=== PATIENT | male | born 1990 | race Caucasian/White ===

== ENCOUNTER 2017-03-31 15:48 | Emergency (ER) | payer BC ==
--- NOTE | 2017-03-31 17:33 | RADIOLOGY REPORT (SQ) ---
EXAM DESCRIPTION: TIBIA FIBULA LEFT COMPLETED DATE/TIME: 03/31/2017 5:24 pm REASON FOR STUDY: pretibial pain COMPARISON: None. NUMBER OF VIEWS: Two views. TECHNIQUE: Two radiographic images acquired of the left tibia and fibula to include the knee and ank le in at least one projection. LIMITATIONS: None. FINDINGS: MINERALIZATION: Normal. BONES: No acute fracture or dislocation. There is a bony protuberance at the level of the proximal t ibia the appearance would suggest an osteo chondroma or other benign process however clinical correla tion is recommended SOFT TISSUES: No obvious swelling or foreign body. OTHER: No other significant finding. IMPRESSION: No acute fracture or dislocation. Bony protuberance at the level of the proximal tibia is noted above the appearance of which would suggest an osteo chondroma or other benign process howev er clinical correlation is recommended. Other findings as noted above TECHNICAL DOCUMENTATION: JOB ID: [id number] [employer]- All Rights Reserved
--- NOTE | 2017-03-31 18:05 | ER Document Report ---
HPI - HPI Pain Level: 4 Context: 26 yo male c/o burning, throbbing pain to left vargas x 1 week. no trauma. admits to prolonged standing on concrete floors. has worked last 12 days straight. Associated Symptoms: None Exacerbated by: Walking Relieved by: Sitting Similar symptoms previously: No Recently seen / treated by doctor: No - MUSCULOSKELETAL Musculoskeletal: REPORTS: Extremity pain Past Medical History - General Information source: Patient - Social History Smoking Status: Current Every Day Smoker Chew tobacco use (# tins/day): No Frequency of alcohol use: Occasional Drug Abuse: Marijuana Lives with: Family Family History: None Patient has suicidal ideation: No Patient has homicidal ideation: No Renal/ Medical History: Denies: Hx Peritoneal Dialysis Psychiatric Medical History: Reports: Hx Attention Deficit Hyperactivity Disorder, Hx Depression - PTSD Past Surgical History: Reports: Hx Orthopedic Surgery - L hip L knee R knee - Immunizations Hx Diphtheria, Pertussis, Tetanus Vaccination: Yes - 2008 [employer] Provider Document - INFECTION CONTROL TRAVEL OUTSIDE OF THE [place] IN LAST 30 DAYS: No - HEENT HEENT: Atraumatic - NECK Neck: Normal Inspection, Supple - RESPIRATORY Respiratory: Breath Sounds Normal, No Respiratory Distress O2 Sat by Pulse Oximetry: 97 - MUSCULOSKELETAL/EXTREMETIES Musculoskeletal/Extremeties: Tender - focal tenderness left mid pretibial area. no edema, no echymosis. distal SMC intact Course - Re-evaluation Re-evalutation: 03/31/17 18:01 xray is negative. results reviewed with pt. - Vital Signs Vital signs: Temp Pulse Resp BP Pulse Ox 99.1 F 106 H 18 147/87 H 97 03/31/17 16:01 03/31/17 16:01 03/31/17 16:01 03/31/17 16:01 03/31/17 16:01 Discharge - Discharge Clinical Impression: Left leg pain Condition: Stable Disposition: HOME, SELF-CARE Additional Instructions: your xray is negative today yahaira wrap for comfort and support Motrin for discomfort ice and elevate follow up with primary care if symptoms persist Forms: Return to Work
[2017-03-31 18:22] VITALS: BP 143/88
== END 2017-03-31 18:31 | disposition home or self-care (01) ==
LOC: ER 15:48
DX: M79.605 Pain in left leg (principal); F17.200 Nicotine dependence, unspecified, uncomplicated
CPT/HCPCS: 99283

== ENCOUNTER 2017-12-22 23:02 | Emergency (ER) | payer BC ==
[2017-12-22] MEDS ORDERED: HYDROCODONE/ACETAMINOPHEN 5-325 MG TABLET PO ONE (23:31)
--- NOTE | 2017-12-22 23:34 | ER Document Report ---
ED General - General Chief Complaint: Knee Injury Stated Complaint: KNEE INJURY Time Seen by Provider: 12/22/17 23:24 Notes: Patient is a 27-year-old male who presents with complaint of pain in his left knee. He says he feels as if his knee is constantly going out of alignment. He is unsure if it is actually dislocating or not. He denies any weakness or numbness into his foot. He says this has been intermittent for 3-4 days. He says he cannot tell if it is his kneecap that is dislocating or if his knee is actually dislocating or just "out of alignment". He is never seen an orthopedist about this. He is still able to bear weight but is painful to do so. TRAVEL OUTSIDE OF THE [place] IN LAST 30 DAYS: No - Related Data Allergies/Adverse Reactions: No Known Allergies Allergy (Verified 03/31/17 15:51) Past Medical History - Social History Smoking Status: Unknown if Ever Smoked Frequency of alcohol use: None Drug Abuse: None Family History: None Renal/ Medical History: Denies: Hx Peritoneal Dialysis Psychiatric Medical History: Reports: Hx Attention Deficit Hyperactivity Disorder, Hx Depression - PTSD Past Surgical History: Reports: Hx Orthopedic Surgery - L hip L knee R knee - Immunizations Hx Diphtheria, Pertussis, Tetanus Vaccination: Yes - 2008 Review of Systems - Review of Systems Notes: My Normal Review Basic REVIEW OF SYSTEMS: CONSTITUTIONAL : Denies fever, chills, or sweats. Denies recent illness. SKIN: Denies rash or skin lesions. NEUROLOGICAL: Denies sensory or motor loss. ALL OTHER SYSTEMS REVIEWED AND NEGATIVE. Physical Exam - Vital signs Vitals: Temp Pulse Resp BP Pulse Ox 98.3 F 96 16 130/74 H 98 12/22/17 23:10 12/22/17 23:10 12/22/17 23:10 12/22/17 23:10 12/22/17 23:10 - Notes Notes: General Appearance: Well nourished, alert, cooperative, no acute distress, moderate obvious discomfort. Vitals: reviewed, See vital signs table. Eyes: PERRL, EOMI, Conjuctiva Extremity: On initial exam patient's left leg is rotated outward. The patella appears to be midline. Does actually flex the knee some extend it normally on his own when he is trying to get in the bed. When I walk in the room he is standing and bearing weight on it. Distal posterior tibial and dorsalis pedis pulses are intact. Cap refill is intact. Is able move his left foot without difficulty. Distal sensation intact. Skin: warm, dry, appropriate color, no rash Neuro: speech clear, oriented x 3, normal affect, responds appropriately to questions. Course - Re-evaluation Re-evalutation: 12/24/17 07:52 CT was obtained because it is really difficult to tell per the patient's history whether or not he has had a knee dislocation. CTA was negative. Upon recurrent discussions with the patient he now says that his left leg has been externally rotated like this for several years. His pain is just been getting a lot worse when he feels at times that may be it is out of place however it is really difficult for him to tell this for sure. Currently the knee is in place. There is no evidence of any vascular injury. I will place him in a knee immobilizer and having him use crutches. I will have him follow-up closely with the orthopedic surgeon. Patient encouraged to return to ER if he has worsening pain, weakness or numbness into the foot, or if he feels unwell. Patient agrees with plan will be discharged home. Dictation of this chart was performed using voice recognition software; therefore, there may be some unintended grammatical errors. - Vital Signs Vital signs: Temp Pulse Resp BP Pulse Ox 98.6 F 89 18 128/70 H 97 12/23/17 02:03 12/23/17 02:03 12/23/17 02:03 12/23/17 02:03 12/23/17 02:03 Discharge - Discharge Clinical Impression: Knee pain Qualifiers: Chronicity: chronic Laterality: left Qualified Code(s): M25.562 - Pain in left knee Condition: Good Disposition: HOME, SELF-CARE Additional Instructions: Please do not bear weight on your left knee until cleared by Dr. Bee. Please call his office this am to make a close follow up appointment this week. Please wear the knee immobilizer. You can take it off to shower. Please return to the ER immediately if you have worsening pain or feel unwell. Please be aware that [facility] does have Tylenol (acetaminophen) in it. Please make sure you do not take more than 4000 mg of acetaminophen a day. Do not drive or care for children after you have taken this medication they will make you sleepy and sometimes impair judgment. Prescriptions: Hydrocodone/Acetaminophen [[place] 5-325 mg Tablet] 1 tab PO Q4 PRN #10 tablet PRN Reason: For Breakthrough Pain Forms: Special Work Note, Return to Work Referrals: GEMINI BEE MD [ACTIVE STAFF] - Follow up tomorrow
[2017-12-23] MEDS ORDERED: NORMAL SALINE 1000 ML 1,000 ML IV ONE (00:04)
--- NOTE | 2017-12-23 00:12 | RADIOLOGY REPORT (SQ) ---
EXAM DESCRIPTION: XR KNEE 4 OR MORE VIEWS COMPLETED DATE/TME: 12/22/2017 00:00 CLINICAL HISTORY: 27 years, Male, Knee "popped out" Pain L knee Onset 2 hrs COMPARISON: None. NUMBER OF VIEWS: 4 TECHNIQUE: 4 views left knee LIMITATIONS: None. FINDINGS: Negative for acute fracture or dislocation. Bony protuberance contiguous with the medial cortex of the proximal tibia, also described on prior plain film dated 03/31/2017. This likely reflects osteochondroma. Soft tissues are unremarkable.. IMPRESSION: No acute osseous abnormality. Probable osteochondroma of the proximal tibia 2010 [employer]- All Rights Reserved
--- NOTE | 2017-12-23 01:08 | RADIOLOGY REPORT (SQ) ---
EXAM DESCRIPTION: CT LOWER EXTREMITY ANGIOGRAPHY WITH IV CONTRAST COMPLETED DATE/TME: 12/23/2017 00:03 CLINICAL HISTORY: 27 years, Male, possible knee dislocation earlier COMPARISON: None. TECHNIQUE: 337 Images stored on PACS. All CT scanners at this facility use dose modulation, iterative reconstruction, and/or weight based dosing when appropriate to reduce radiation dose to as low as reasonably achievable (ALARA). [facility]: Dose Right [facility]: CareDose [facility]: Dose Right [facility]: Teradose 4D [facility]: [employer] LIMITATIONS: None. FINDINGS: The popliteal artery is widely patent. The proximal portions of the trifurcation vessels are widely patent. Imaging was not continued below the proximal tibial diaphysis. No CTA evidence for vascular injury or extravasation of contrast. As described on plain film, there is a probable osteochondroma of the proximal medial tibial diaphysis, incompletely imaged on this exam. The myofascial planes are preserved. IMPRESSION: No CTA evidence for vascular injury or contrast extravasation. Proximal tibial osteochondroma. TECHNICAL DOCUMENTATION: Quality ID # [id number]: Final reports with documentation of one or more dose reduction techniques (e.g., Automated exposure control, adjustment of the mA and/or kV according to patient size, use of iterative reconstruction technique) 2010 [employer]- All Rights Reserved
[2017-12-23] MEDS ORDERED: HYDROCODONE/ACETAMINOPHEN 5-325 MG (6 TAB/ER DISP) PO PRN (01:27)
[2017-12-23 02:04] VITALS: BP 128/70
== END 2017-12-23 02:04 | disposition home or self-care (01) ==
LOC: ER 23:02
DX: M25.562 Pain in left knee (principal); G89.29 Other chronic pain; Z98.890 Other specified postprocedural states
CPT/HCPCS: 99283; 96360; 73564; 73706; L1830; J7030

== ENCOUNTER 2018-03-24 09:43 | Day surgery (SDC) | payer BC ==
[2018-03-16 09:30] LABS: HEMATOCRIT 47.4 % (37.9-51.0); HEMOGLOBIN 16.7 g/dL (13.5-17.0); MEAN CORPUSCULAR HEMOGLOBIN 28.1 pg (27.0-33.4); MEAN CORPUSCULAR HGB CONC 35.2 g/dL (32.0-36.0); MEAN CORPUSCULAR VOLUME 80 fl (80-97); PLATELET COUNT 268 10^3/uL (150-450); RED BLOOD COUNT 5.94 10^6/uL (4.35-5.55); RED CELL DISTRIBUTION WIDTH 13.4 % (11.5-14.0); WHITE BLOOD COUNT 8.5 10^3/uL (4.0-10.5)
[2018-03-16 09:33] LABS: APPEARANCE,URINE SLIGHTLY-CLOUDY; BILIRUBIN,URINE NEGATIVE (NEGATIVE); COLOR,URINE YELLOW; GLUCOSE, URINE NEGATIVE (NEGATIVE); KETONES,URINE NEGATIVE (NEGATIVE); LEUKOCYTE ESTERASE,URINE NEGATIVE (NEGATIVE); NITRITE,URINE NEGATIVE (NEGATIVE); PROTEIN,URINE 100 mg/dL (NEGATIVE); URINE SPECIFIC GRAVITY 1.021; UROBILINOGEN,URINE NEGATIVE mg/dL (<2.0)
[2018-03-16 09:57] LABS: ANION GAP 7 (5-19); BLOOD UREA NITROGEN 13 mg/dL (7-20); CALCIUM 9.5 mg/dL (8.4-10.2); CARBON DIOXIDE 28 mmol/L (22-30); CHLORIDE 103 mmol/L (98-107); GLUCOSE 111 mg/dL (75-110); POTASSIUM 4.7 mmol/L (3.6-5.0); SODIUM 137.8 mmol/L (137-145)
--- NOTE | 2018-03-16 10:27 | RADIOLOGY REPORT (SQ) ---
EXAM DESCRIPTION: CHEST PA/LATERAL COMPLETED DATE/TIME: 03/16/2018 9:28 am REASON FOR STUDY: PRE-OP COMPARISON: 11/19/2008, 11/18/2008 EXAM PARAMETERS: NUMBER OF VIEWS: two views TECHNIQUE: Digital Frontal and Lateral radiographic views of the chest acquired. RADIATION DOSE: NA LIMITATIONS: none FINDINGS: LUNGS AND PLEURA: No opacities, masses or pneumothorax. No pleural effusion. MEDIASTINUM AND HILAR STRUCTURES: No masses or contour abnormalities. HEART AND VASCULAR STRUCTURES: Heart normal size. No evidence for failure. BONES: No acute findings. HARDWARE: None in the chest. OTHER: No other significant finding. IMPRESSION: NO SIGNIFICANT RADIOGRAPHIC FINDING IN THE CHEST. TECHNICAL DOCUMENTATION: JOB ID: [id number] [employer]- All Rights Reserved Reading location - IP/workstation name: [email or web address]
--- NOTE | 2018-03-17 08:01 | EKG REPORT ---
SEVERITY:- NORMAL ECG - SINUS RHYTHM : Confirmed by: Theresa Guajardo MD 17-Mar-2018 07:59:58
[~2018-03-24 09:43] MED LIST: CEFAZOLIN 2 GM/D5W RTU 2 GM/50 ML RTUPB IV PRN; LACTATED RINGERS 1000 ML IV PRN; LIDOCAINE 0.5% INJ-PF (5 MG/ML) 50 ML SDV SUBCUT PRN; SUCCINYLCHOLINE CHLORIDE INJ 200 MG/10 ML VIAL ONE
[2018-03-24] MEDS ORDERED: CEFAZOLIN 2 GM/D5W RTU 2 GM/50 ML RTUPB IV ONE (10:05)
[2018-03-24] MEDS ORDERED: EPINEPHRINE INJ/PF 1 MG/1 ML AMPULE ONE (10:39)
[2018-03-24] MEDS ORDERED: BUPIVACAINE HCL 0.5 % INJ/PF 30 ML SDV ONE (10:39)
[2018-03-24] MEDS ORDERED: PROPOFOL INJ 200 MG/20 ML VIAL IV ONE ×2 (14:41→14:44)
[2018-03-24] MEDS ORDERED: LIDOCAINE 2% INJ-PF (20 MG/ML) 10 ML AMPUL ONE (14:41)
[2018-03-24] MEDS ORDERED: FENTANYL CITRATE INJ/PF 100 MCG/2 ML AMPUL ONE (14:42)
[2018-03-24] MEDS ORDERED: PROMETHAZINE HCL INJ 25 MG/1 ML VIAL ONE (14:42)
[2018-03-24] MEDS ORDERED: ONDANSETRON HCL INJ/PF 4 MG/2 ML SDV ONE (14:43)
[2018-03-24] MEDS ORDERED: MIDAZOLAM 2 MG/2 ML INJ ONE (14:43)
[2018-03-24] MEDS ORDERED: DEXAMETHASONE SOD PHOSPHATE INJ 4 MG/1 ML VIAL ONE (14:43)
[2018-03-24] MEDS ORDERED: ACETAMINOPHEN 1,000 MG/100 ML RTUPB IV ONE (14:43)
[2018-03-24] MEDS ORDERED: MEPERIDINE HCL/PF INJ 25 MG/1 ML DISP.SYRIN IV PRN (15:30)
[2018-03-24] MEDS ORDERED: OXYCODONE-ACETAMINOPHEN 5-325 MG TABLET PO PRN ×4 (15:30→17:06)
[2018-03-24] MEDS ORDERED: FENTANYL CITRATE INJ/PF 100 MCG/2 ML AMPUL IV PRN ×3 (15:30)
[2018-03-24] MEDS ORDERED: ONDANSETRON HCL INJ/PF 4 MG/2 ML SDV IV PRN (15:30)
[2018-03-24] MEDS ORDERED: DIPHENHYDRAMINE HCL 50 MG/ML VIAL IV PRN (15:30)
[2018-03-24] MEDS ORDERED: PROMETHAZINE HCL INJ 25 MG/1 ML VIAL IV PRN ×2 (15:30)
--- NOTE | 2018-03-24 17:03 | Operative Report ---
Operative Report DATE OF SURGERY: 03/24/18 PREOPERATIVE DIAGNOSIS: Left knee ACL tear and medial meniscus bucket-handle te ar POSTOPERATIVE DIAGNOSIS: Same OPERATION: Left knee arthroscopic ACL reconstruction with Achilles allograft and partial medial meniscectomy SURGEON: DMITRIY VILLALPANDO ANESTHESIA: GA TISSUE REMOVED OR ALTERED: Meniscal shavings COMPLICATIONS: None ESTIMATED BLOOD LOSS: 20 mL INTRAOPERATIVE FINDINGS: As above PROCEDURE: Patient was brought to the operating room and successfully induced and intubated in a the supine position. Once the tube was secured a thigh tourniquet was applied to the left lower extremity was prepped and draped in a normal surgical fashion. Timeout was done identifying the left knee has a correct site. The extremity was exsanguinated with an Esmarch and then the tourniquet was inflated at 300 mmHg 0.25% of Marcaine was injected into the anticipated portal sites. 11 blade was used to establish the anterolateral portal. Scope was introduced and the capsule was distended with sterile saline solution. Under direct visualization the anteromedial portal sites was established first by applying a spinal needle and then established with the 11 blade. Probe was introduced and a diagnostic scope was done. Patient had a bucket-handle tear of the medial meniscus and grade 1 changes of the medial femoral condyle. Patient also had full tear of the ACL that had scarred down to the PCL but had a empty wall sign. I used a meniscal biter and a 4.0 mm shaver to cut the 2 ends of the meniscus tear and was able to remove the large portion with a hemostat. The remaining edges of the torn meniscus were then cleaned off of the meniscal biter and shaver. After the contours of the edges were completed and 90% of the medial meniscus was resected pictures were taken showing the rim remnant. At this point I turned my attention to the ACL I used the combination of 5.5 mm shaver and 50 radiofrequency ablator to do my debridement of the torn anterior cruciate ligament and expose the lateral wall. I used a chondral pick to coreen where I would like to place my femoral tunnel. This was confirmed with the medial [id number] guide. I flexed the knee as much as possible and use my spade tip guidepin and drilled through. I was able to measure about a 30 mm tunnel before I pierced the cortex and passed the pin through the lateral aspect of the thigh. I used the 10 mm low-profile reamer then to do my femoral tunnel and stopped at 25 mm in depth. I used a shaver then to clean out the bony debris. I visualized the tunnel with a camera and make sure had a back wall and did not pierced the lateral cortex. At this point I fed a FiberWire through the eyelet and passed it through the lateral aspect of the thigh. This FiberWire were then later on the shuttle through the tibial tunnel to shuttle the graft. In the meantime it was clamped outside the skin. At this point I grabbed my retro- cutter guide which was marked at [address] on the anterior cruciate ligament footprint on the tibial side. This had been cleaned off with a shaver and bur to Fregosi ablator as well. I used the scope anterior horn of the lateral meniscus as a guide as well as 7 mm anterior to the PCL. Once I was happy with the placement I did a medial incision and measured the tibial tunnel to be 40. Once again I use the shaver to clean out the debris in the knee. The Achilles was preparing the back table and the made sure that I was able to pass through it 10 mm tunnel with the bone plug side and the tendinous portion. The graft had been placed in a moist sponge and ready for insertion once the tunnels were completed. I used a probe to grabbed the have the portion of the FiberWire suture that was left in the femoral tunnel and passed it through the tibial tunnel. At this point we shuttled the Achilles tendon allograft through the tibial tunnel into the femoral tunnel successfully using the bone plug to fit nicely in the femoral tunnel. I proceeded to notch the tunnel and placed a nitinol wire. I placed a 7 x 23mm bicomposite screw securing the bone plug in the femoral tunnel. I then turned my attention to the tibial tunnel where I notched it and then placed a nitinol wire for placement of the screw. While holding the leg in a reverse Ivone position by my assistant loan processor I pulled tension on the tibial side of the graft and placed my interference screw securing the graft. Ivone was used to showing good endpoint and minimal translation. Scope was introduced and I used a probe to check the tension on the anterior cruciate ligament graft. I was satisfied with the tension so at this point fluid was removed from the knee and the instruments were removed. I proceeded to close my 2 portal sites with 3-0 nylon and the tibial incision with 0 Vicryl to Vicryl and 2-0 nylon. Xeroform, 4 x 4, AVD pad, Sof-Rol was applied and then overwrapped with an Gil bandage. Tourniquet was let down and the drapes were removed. Patient was extubated and sent to PACU in stable condition.
--- NOTE | 2018-03-24 17:05 | Discharge Summary ---
Discharge Summary (SDC) - Discharge Final Diagnosis: Left knee ACL reconstruction with Achilles allograft and partial medial meniscectomy Date of Surgery: 03/24/18 Discharge Date: 03/24/18 Condition: Good Treatment or Instructions: My patient instructed to follow up in 10-14 days. Patient instructed to keep dressing dry clean and intact for 4 days and then allowed to remove. At that point patient can shower and apply Band-Aids as needed. Patient can weight-bear as tolerated and do range of motion exercises as tolerated. Crutches for support and safety. Can wean crutches once stable on his feet. Patient instructed to call the office if patient develops fevers chills redness and drainage from the surgical sites. Prescriptions: Oxycodone HCl/Acetaminophen [Percocet 5-325 mg Tablet] 1 - 2 tab PO ASDIR PRN #30 tablet PRN Reason: Referrals: AMARILIS ISLAS FNP-C [Primary Care Provider] - Discharge Diet: As Tolerated Respiratory Treatments at Home: Deep Breathing/Coughing Discharge Activity: No Driving, No Lifting/Push/Pulling, Slowly Increase Activity, Walk Frequently Home Care Assistance: None Needed Adaptive Devices on Discharge: Axillary Crutches Report the Following to Your Physician Immediately: Shortness of Breath, Vomiting, Increase in Pain, Fever over 101 Degrees, Unusual Bleeding, Redness, Drainage-Yellow, Drainage-[place], Drainage-Green, Drainage-Foul Smelling
[2018-03-24] MEDS ORDERED: HYDROMORPHONE HCL INJ/PF 2 MG/ML AMPULE ONE (17:08)
[2018-03-24] MEDS: FENTANYL CITRATE INJ/PF 100 MCG/2 ML AMPUL ONE ×2 (17:20→17:25)
[2018-03-24] MEDS ORDERED: KETOROLAC TROMETHAMINE INJ/PF 30 MG/1 ML SDV ONE (17:43)
[2018-03-24 20:33] VITALS: BP 132/95
== END 2018-03-24 20:05 | disposition home or self-care (01) ==
LOC: OROUT 09:43
PROVIDERS: ATTEND Orthopaedic Surgery
DX: M23.332 Other meniscus derangements, other medial meniscus, left knee (principal); S83.512A Sprain of anterior cruciate ligament of left knee, initial encounter; X58.XXXA Exposure to other specified factors, initial encounter; F17.210 Nicotine dependence, cigarettes, uncomplicated; I10 Essential (primary) hypertension; Z79.1 Long term (current) use of non-steroidal anti-inflammatories (NSAID); Z01.818 Encounter for other preprocedural examination
CPT/HCPCS: 93005; 36415; 85027; 80048; 81001; 71046; 93010; 29881; 29888; C1713 ×2; J2250; J3490 ×2; J1100; J0171; J3010; J1885; J1170; J2550; J0330; J2405; J2704; J0690; J0131; 1400

== ENCOUNTER 2018-11-03 11:14 | Emergency (ER) | payer SELFPAY ==
[2018-11-03 11:19] VITALS: BP 136/84
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
== END 2018-11-03 11:59 | disposition home or self-care (01) ==
LOC: ER 11:14
DX: J34.89 Other specified disorders of nose and nasal sinuses (principal)
CPT/HCPCS: 99283

== ENCOUNTER 2019-05-08 12:26 | Emergency (ER) | payer SELFPAY ==
[2019-05-08 13:55] VITALS: BP 149/88
[2019-05-08] MEDS ORDERED: LIDOCAINE 1% INJ-PF (10 MG/ML) 30 ML SDV INJ ONE (13:58)
[2019-05-08] MEDS ORDERED: IBUPROFEN 800 MG TABLET PO ONE (13:58)
--- NOTE | 2019-05-08 14:27 | RADIOLOGY REPORT (SQ) ---
EXAM DESCRIPTION: FINGER LEFT COMPLETED DATE/TIME: 05/08/2019 2:15 pm REASON FOR STUDY: 4th digit laceration COMPARISON: None. NUMBER OF VIEWS: Three views. TECHNIQUE: AP, lateral, and oblique images acquired of the left fourth finger. LIMITATIONS: None. FINDINGS: MINERALIZATION: Normal. BONES: No acute fracture or dislocation. No worrisome bone lesions. SOFT TISSUES: Soft tissue defect. OTHER: No other significant finding. IMPRESSION: Soft tissue defect. No underlying fracture. TECHNICAL DOCUMENTATION: JOB ID: [id number] [employer]- All Rights Reserved Reading location - IP/workstation name: [email or web address]
--- NOTE | 2019-05-08 15:22 | ER Document Report ---
HPI - HPI Time Seen by Provider: 05/08/19 13:55 Pain Level: 4 Notes: Patient is a 28-year-old male presenting to the emergency department chief complaint of left fourth digit laceration. Patient reports he was using a hedge tremor that was electric when it jumped and caught his finger. He is unsure when his last tetanus was. There is no active bleeding noted at this time. - CONSTITUTIONAL Constitutional: DENIES: Fever, Chills Past Medical History - General Information source: Patient - Social History Smoking Status: Current Every Day Smoker Frequency of alcohol use: Occasional Drug Abuse: Marijuana Family History: None Patient has suicidal ideation: No Patient has homicidal ideation: No - Past Medical History Cardiac Medical History: Denies: Hx Coronary Artery Disease, Hx Heart Attack, Hx Hypertension Pulmonary Medical History: Denies: Hx Asthma, Hx Bronchitis, Hx COPD, Hx Pneumonia Neurological Medical History: Denies: Hx Cerebrovascular Accident, Hx Seizures Renal/ Medical History: Denies: Hx Peritoneal Dialysis Musculoskeletal Medical History: Reports Hx Arthritis - MILD Psychiatric Medical History: Reports: Hx Attention Deficit Hyperactivity Disorder, Hx Depression - PTSD Past Surgical History: Reports: Hx Orthopedic Surgery - L hip L knee R knee - Immunizations Hx Diphtheria, Pertussis, Tetanus Vaccination: Yes - 2008 Vertical Provider Document - CONSTITUTIONAL Agree With Documented VS: - By Tabitha Notes: PHYSICAL EXAMINATION: GENERAL: Well-appearing, well-nourished and in no acute distress. HEAD: Atraumatic, normocephalic. EYES: Pupils equal round extraocular movements intact, conjunctiva are normal. ENT: Nares patent NECK: Normal range of motion LUNGS: No respiratory distress Musculoskeletal: Normal range of motion NEUROLOGICAL: Normal speech, normal gait. PSYCH: Normal mood, normal affect. SKIN: 1 cm laceration noted to left fourth digit through the nailbed. No active bleeding noted. - INFECTION CONTROL TRAVEL OUTSIDE OF THE [place] IN LAST 30 DAYS: No Course - Re-evaluation Re-evalutation: Tdap updated, laceration sutured under sterile technique, patient tolerated well. - Vital Signs Vital signs: Temp Pulse Resp BP Pulse Ox 97.7 F 101 H 16 149/88 H 98 05/08/19 13:53 05/08/19 13:53 05/08/19 13:53 05/08/19 13:53 05/08/19 13:53 Procedures - Laceration/Wound Repair Left fourth digit Wound length (cm): 2 Wound's Depth, Shape: Superficial Laceration pre-procedure: Sterile PPE donned Anesthetic type: 1% Lidocaine Wound Repaired With: Sutures Suture Size/Type: 5:0 Number of Sutures: 3 Discharge - Discharge Clinical Impression: Laceration Condition: Stable Disposition: HOME, SELF-CARE Additional Instructions: Laceration Care Your laceration has been sutured to keep the skin edges aligned during healing. The time of suture removal depends on the nature and location of your cut. Please follow the care instructions the doctor has outlined for you and return for further care, according to the schedule you've been given. Keep the wound and dressing clean. Unless you were told otherwise, you may shower daily, blotting the wound dry with a clean, unused towel. At other times, If the dressing gets wet or blood soaked, remove it and blot the wound dry, then reapply a new dressing. Unless you were instructed otherwise, dressings should be changed at least daily. If any signs of infection occur (swelling, redness, increasing tenderness, red streaks, tender lumps in the armpit or groin above the laceration, or fever), see the doctor immediately. Please return to the emergency department or your primary care provider in 10-12 days for suture removal. Please return earlier if you develop any signs of infection such as increased redness, swelling, foul-smelling drainage or fever. Prescriptions: Cephalexin [Keflex] 500 mg PO BID #10 capsule Forms: Return to Work Referrals: AMARILIS ISLAS FNP-C [Primary Care Provider] - Follow up as needed
== END 2019-05-08 15:44 | disposition home or self-care (01) ==
LOC: ER 12:26
DX: S61.215A Laceration without foreign body of left ring finger without damage to nail, initial encounter (principal); W29.3XXA Contact with powered garden and outdoor hand tools and machinery, initial encounter; Y93.H9 Activity, other involving exterior property and land maintenance, building and construction; F17.200 Nicotine dependence, unspecified, uncomplicated; F12.10 Cannabis abuse, uncomplicated
CPT/HCPCS: 99282; 73140; 12001; J3490

== ENCOUNTER 2019-05-18 20:36 | Emergency (ER) | payer SELFPAY ==
--- NOTE | 2019-05-18 20:49 | ER Document Report ---
ED General - General Chief Complaint: Suture Removal Stated Complaint: REMOVAL OF SUTURES Primary Care Provider: AMARILIS ISLAS FNP-C [Primary Care Provider] - Follow up as needed Notes: Patient is a 29-year-old white male with no significant past medical history who was seen here approximately 10 days ago and had sutures placed in the left ring finger tip who returns today for suture removal. He states the one that was holding down the nailbed "popped". He states that has caused the nailbed to loosen a little. He states otherwise the wound is doing well. The remaining stitches have held in place. No worsening swelling, redness or drainage. States the wound is healing routinely. Denies any fever, nausea, vomiting, diarrhea, chills or night sweats. No numbness tingling or weakness. TRAVEL OUTSIDE OF THE [place] IN LAST 30 DAYS: No - Related Data Allergies/Adverse Reactions: pollen extracts Allergy (Severe, Verified 11/03/18 11:15) Past Medical History - Social History Smoking Status: Unknown if Ever Smoked Family History: None - Past Medical History Cardiac Medical History: Denies: Hx Coronary Artery Disease, Hx Heart Attack, Hx Hypertension Pulmonary Medical History: Denies: Hx Asthma, Hx Bronchitis, Hx COPD, Hx Pneumonia Neurological Medical History: Denies: Hx Cerebrovascular Accident, Hx Seizures Renal/ Medical History: Denies: Hx Peritoneal Dialysis Musculoskeletal Medical History: Reports Hx Arthritis - MILD Psychiatric Medical History: Reports: Hx Attention Deficit Hyperactivity Disorder, Hx Depression - PTSD Past Surgical History: Reports: Hx Orthopedic Surgery - L hip L knee R knee - Immunizations Hx Diphtheria, Pertussis, Tetanus Vaccination: Yes - 2008 Review of Systems - Review of Systems Skin: Other - Sutures -: Yes All other systems reviewed and negative Physical Exam - General General appearance: Appears well, Alert - Respiratory Respiratory status: No respiratory distress Chest status: Nontender Breath sounds: Normal Chest palpation: Normal - Cardiovascular Rhythm: Regular Heart sounds: Normal auscultation - Neurological Neuro grossly intact: Yes Cognition: Normal Orientation: AAOx4 - Psychological Associated symptoms: Normal affect, Normal mood - Skin Skin Temperature: Warm Skin Moisture: Dry Skin Color: Other - Sutures in place tip of the left ring finger. Routine healing. No erythema, drainage or swelling. There is mild elevation of the broken ulnar edge of the nail. Course - Re-evaluation Re-evalutation: 05/18/19 20:50 3 sutures removed from the tip of the left ring finger by nurse. Patient tolerated well. No complications. Discharge - Discharge Clinical Impression: Visit for suture removal Condition: Stable Disposition: HOME, SELF-CARE Instructions: Suture Removal Additional Instructions: Follow-up with your regular doctor in 2 to 3 days for reevaluation. Return here or any ER immediately with any new, persistent or worsening symptoms. Referrals: AMARILIS ISLAS, DAYCARE DIRECTOR-C [Primary Care Provider] - Follow up as needed
[2019-05-18 20:56] VITALS: BP 129/84
== END 2019-05-18 21:00 | disposition home or self-care (01) ==
LOC: ER 20:36
DX: Z48.02 Encounter for removal of sutures (principal); Z91.048 Other nonmedicinal substance allergy status